=== PATIENT | male | born 1975 | race Caucasian/White ===

== ENCOUNTER 2019-03-22 18:20 | Inpatient (IN) | payer BC ==
--- NOTE | 2019-03-22 18:55 | ED ---
Abdominal Pain HPI - General Chief Complaint: Abdominal Pain Stated Complaint: Abd pain Time Seen by Provider: 03/22/19 18:46 Source: patient Mode of arrival: ambulatory Limitations: no limitations - History of Present Illness Initial Comments: 43-year-old male presenting for left-sided abdominal pain x 1 day. He states he has left-sided abdominal pain stretching from the left upper abdomen towards the lower. He states he began yesterday and has come and gone. Patient states this then persisted today. He states he is not able to eat anything aside from some fruit this morning around 11 AM. Patient denies any vomiting diarrhea melena hematochezia. Patient denies constipation. Patient states he does have a problem with alcohol abuse. Patient denies abdominal trauma. He has a fever chills night sweats. Remaining review of system negative. Upon arrival patient appears uncomfortable. Heart rate elevated - Related Data Home Medications Medication Instructions Recorded Confirmed No Known Home Medications 03/22/19 03/22/19 Allergies Allergy/AdvReac Type Severity Reaction Status Date / Time No Known Allergies Allergy Verified 03/22/19 22:02 Review of Systems ROS Statement: Those systems with pertinent positive or pertinent negative responses have been documented in the HPI. ROS Other: All systems not noted in ROS Statement are negative. Past Medical History Past Medical History: No Reported History History of Any Multi-Drug Resistant Organisms: None Reported Past Surgical History: No Surgical Hx Reported Past Psychological History: No Psychological Hx Reported Smoking Status: Never smoker Past Alcohol Use History: Daily Past Drug Use History: None Reported General Exam - General Exam Comments Initial Comments: General: The patient is awake and alert Eye: Pupils are equal, round and reactive to light, extra-ocular movements are intact. No nystagmus. There is normal conjunctiva bilaterally. No signs of icterus. Ears, nose, mouth and throat: There are moist mucous membranes and no oral lesions. Neck: The neck is supple, there is no tenderness or JVD. Cardiovascular: There is a regular rate and rhythm. No murmur, rub or gallop is appreciated. Respiratory: Lungs are clear to auscultation, respirations are non-labored, breath sounds are equal. No wheezes, stridor, rales, or rhonchi. Gastrointestinal: Soft, non-distended, diffusely tender abdomen, mostly left sided/upper without masses or organomegaly noted. There is no rebound or guarding present. No CVA tenderness. Bowel sounds are unremarkable. Musculoskeletal: Normal ROM, no tenderness. Strength 5/5. Sensation intact. Radial pulses equal bilaterally 2+. Neurological: A&O x 3. CN II-XII intact, There are no obvious motor or sensory deficits. Coordination appears grossly intact. Speech is normal. Skin: Skin is warm and dry and no rashes or lesions are noted. Psychiatric: Cooperative, appropriate mood & affect, normal judgment. Limitations: no limitations Course Vital Signs 03/22/19 03/22/19 18:41 21:41 Temperature 100.4 F H Pulse Rate 126 H 108 H Respiratory 18 16 Rate Blood Pressure 129/79 130/84 O2 Sat by Pulse 97 99 Oximetry Medical Decision Making - Medical Decision Making 43-year-old male presenting for abdominal pain. Patient has no specific tenderness on examination. Patient blood lipemic upon blood draw, patient has not ate today this is concerning for familial TG disorder. Triglycerides greater than 1000, Cholesterol ~930. Patient has history of alcohol abuse. Due to the lipemic blood were unable to obtain accurate lipase. CT findings consistent with pancreatitis. Ultrasound revealed no signs of acute cholecystitis. Patient was given ceftriaxone given fever and elevated heart rate on arrival. Blood cultures are pending. Lactic acid within normal limits. Patient ordered nothing by mouth with conservative pancreatitis patient states pain medications the emergency department. Results as well as concern for familial disorder was discussed at length the patient verbalized understanding. Patient is agreeable to admission. Admission accepted by Dr. Perea after discussing the case. GI on consult. - Lab Data Result diagrams: 03/22/19 19:59 03/22/19 19:59 Lab Results 03/22/19 03/22/19 03/22/19 Range/Units 19:59 19:59 19:59 WBC 17.8 H (3.8-10.6) k/uL RBC 3.91 L (4.30-5.90) m/uL Hgb 17.9 H (13.0-17.5) gm/dL Hct 36.8 L (39.0-53.0) % MCV 94.1 (80.0-100.0) fL MCH 45.8 H (25.0-35.0) pg MCHC 48.6 H (31.0-37.0) g/dL RDW 14.1 (11.5-15.5) % Plt Count 243 (150-450) k/uL Neutrophils % 84 % Lymphocytes % 10 % Monocytes % 3 % Eosinophils % 2 % Basophils % 0 % Neutrophils # 15.0 H (1.3-7.7) k/uL Lymphocytes # 1.7 (1.0-4.8) k/uL Monocytes # 0.6 (0-1.0) k/uL Eosinophils # 0.3 (0-0.7) k/uL Basophils # 0.1 (0-0.2) k/uL Sodium 131 L (137-145) mmol/L Potassium 3.5 (3.5-5.1) mmol/L Chloride 97 L (98-107) mmol/L Carbon Dioxide 18 L (22-30) mmol/L Anion Gap 16 mmol/L BUN 8 L (9-20) mg/dL Creatinine 0.72 (0.66-1.25) mg/dL Est GFR (CKD-EPI)AfAm >90 (>60 ml/min/1.73 sqM) Est GFR (CKD-EPI)NonAf >90 (>60 ml/min/1.73 sqM) Glucose 104 H (74-99) mg/dL Plasma Lactic Acid Marlon 1.2 (0.7-2.0) mmol/L Calcium 8.3 L (8.4-10.2) mg/dL Total Bilirubin 2.0 H (0.2-1.3) mg/dL AST 62 H (17-59) U/L ALT 44 (21-72) U/L Alkaline Phosphatase 101 (38-126) U/L Total Protein 7.3 (6.3-8.2) g/dL Albumin 3.1 L (3.5-5.0) g/dL Triglycerides (<150) mg/dL Cholesterol (<200) mg/dL LDL Cholesterol, Calc (0-99) mg/dL HDL Cholesterol (40-60) mg/dL Amylase 154 H (30-110) U/L Urine Color Urine Appearance (Clear) Urine pH (5.0-8.0) Ur Specific [place] (1.001-1.035) Urine Protein (Negative) Urine Glucose (UA) (Negative) Urine Ketones (Negative) Urine Blood (Negative) Urine Nitrite (Negative) Urine Bilirubin (Negative) Urine Urobilinogen (<2.0) mg/dL Ur Leukocyte Esterase (Negative) Urine RBC (0-5) /hpf Urine Mucus (None) /hpf 03/22/19 03/22/19 Range/Units 19:59 21:45 WBC (3.8-10.6) k/uL RBC (4.30-5.90) m/uL Hgb (13.0-17.5) gm/dL Hct (39.0-53.0) % MCV (80.0-100.0) fL MCH (25.0-35.0) pg MCHC (31.0-37.0) g/dL RDW (11.5-15.5) % Plt Count (150-450) k/uL Neutrophils % % Lymphocytes % % Monocytes % % Eosinophils % % Basophils % % Neutrophils # (1.3-7.7) k/uL Lymphocytes # (1.0-4.8) k/uL Monocytes # (0-1.0) k/uL Eosinophils # (0-0.7) k/uL Basophils # (0-0.2) k/uL Sodium (137-145) mmol/L Potassium (3.5-5.1) mmol/L Chloride (98-107) mmol/L Carbon Dioxide (22-30) mmol/L Anion Gap mmol/L BUN (9-20) mg/dL Creatinine (0.66-1.25) mg/dL Est GFR (CKD-EPI)AfAm (>60 ml/min/1.73 sqM) Est GFR (CKD-EPI)NonAf (>60 ml/min/1.73 sqM) Glucose (74-99) mg/dL Plasma Lactic Acid Marlon (0.7-2.0) mmol/L Calcium (8.4-10.2) mg/dL Total Bilirubin (0.2-1.3) mg/dL AST (17-59) U/L ALT (21-72) U/L Alkaline Phosphatase (38-126) U/L Total Protein (6.3-8.2) g/dL Albumin (3.5-5.0) g/dL Triglycerides >5250 H (<150) mg/dL Cholesterol 976 H (<200) mg/dL LDL Cholesterol, Calc (0-99) mg/dL HDL Cholesterol 24 L (40-60) mg/dL Amylase (30-110) U/L Urine Color Yellow Urine Appearance Clear (Clear) Urine pH 7.0 (5.0-8.0) Ur Specific [place] >1.050 H (1.001-1.035) Urine Protein Trace H (Negative) Urine Glucose (UA) Negative (Negative) Urine Ketones 2+ H (Negative) Urine Blood Trace H (Negative) Urine Nitrite Negative (Negative) Urine Bilirubin Negative (Negative) Urine Urobilinogen <2.0 (<2.0) mg/dL Ur Leukocyte Esterase Negative (Negative) Urine RBC 2 (0-5) /hpf Urine Mucus Rare H (None) /hpf Disposition Clinical Impression: Pancreatitis, Abdominal pain, Leukocytosis, Elevated triglycerides with high cholesterol Disposition: ADMITTED IP TO THIS [facility] Condition: Stable Is patient prescribed a controlled substance at d/c from ED?: No Time of Disposition: 21:55 Decision to Admit Reason: Admit from EC Decision Date: 03/22/19 Decision Time: 21:56
--- NOTE | 2019-03-22 19:25 | XR ---
EXAMINATION TYPE: XR chest 2V DATE OF EXAM: 03/22/2019 COMPARISON: NONE HISTORY: Pain TECHNIQUE: Frontal and lateral views of the chest are obtained. FINDINGS: Heart and mediastinum are normal. Lungs are clear. Diaphragm is normal. Bony thorax appear s normal. IMPRESSION: Normal chest.
[2019-03-22 20:09] LABS: Basophils # (A) 0.1 k/uL (0-0.2); Basophils % (A) 0 %; Eosinophils # (A) 0.3 k/uL (0-0.7); Eosinophils % (A) 2 %; HCT 36.8 % (39.0-53.0); HGB 17.9 gm/dL (13.0-17.5); Lymphocytes # (A) 1.7 k/uL (1.0-4.8); Lymphocytes % (A) 10 %; MCV 94.1 fL (80.0-100.0); Monocytes # (A) 0.6 k/uL (0-1.0); Monocytes % (A) 3 %; Neutrophils % (A) 84 %; Platelet Count 243 k/uL (150-450); RBC 3.91 m/uL (4.30-5.90); RDW 14.1 % (11.5-15.5); WBC 17.8 k/uL (3.8-10.6)
[2019-03-22 20:22] LABS: MCH 45.8 pg (25.0-35.0); MCHC 48.6 g/dL (31.0-37.0)
[2019-03-22 20:23] LABS: ALT 44 U/L (21-72); AST 62 U/L (17-59); African American GFR (CKD) >90 (>60 ml/min/1.73 sqM); Albumin 3.1 g/dL (3.5-5.0); Alkaline Phosphatase 101 U/L (38-126); Amylase 154 U/L (30-110); Anion Gap 16 mmol/L; Blood Urea Nitrogen 8 mg/dL (9-20); Calcium 8.3 mg/dL (8.4-10.2); Carbon Dioxide 18 mmol/L (22-30); Chloride 97 mmol/L (98-107); Glucose 104 mg/dL (74-99); Potassium 3.5 mmol/L (3.5-5.1); Sodium 131 mmol/L (137-145); Total Protein 7.3 g/dL (6.3-8.2)
--- NOTE | 2019-03-22 20:44 | CT ---
EXAMINATION TYPE: CT abdomen pelvis w con DATE OF EXAM: 03/22/2019 COMPARISON: None HISTORY: left sided abdominal pain, fever, vomiting CT DLP: 857.9 mGycm Automated exposure control for dose reduction was used. TECHNIQUE: Helical acquisition of images was performed from the lung bases through the pelvis. CONTRAST: Performed without Oral Contrast and with IV Contrast, patient injected with 100 mL of Isovue 300. FINDINGS: Lung bases are clear. There is no pleural effusion. Heart size is normal. There is no pericardial eff usion. There is fluid and fat stranding around the body and tail of the pancreas. There is some fluid at the splenic hilum. Stomach has normal size. The gallbladder is large and measures 5 cm in diameter. Ther e is a subtle low density 4 cm area in the superior right lobe of the liver. The remainder of the kaycee er appears normal. The bile ducts are not dilated. There is no adrenal mass. Kidneys show satisfactory contrast opacification. There is no hydronephrosi s. There is no definite renal calculus. There is no retroperitoneal adenopathy. Ureters are not dilat ed. Bladder distends smoothly. There is no inguinal hernia. There is no free fluid in the pelvis. The laverne endix appears normal. There is no mesenteric edema. There is no ascites or free air. The lumbar spine shows no compression fracture. There is L5 spondylolysis with a few millimeter anterior subluxation of L5 in relation to S1. The bony pelvis appears intact. IMPRESSION: THERE IS FLUID ACCUMULATION AT THE TAIL OF THE PANCREAS THAT COULD RELATE TO ACUTE PANCREATITIS. DILATED GALLBLADDER THAT MEASURES 5 CM AND COULD RELATE TO CHOLECYSTITIS OR GALLBLADDER DYSFUNCTION. NO GALLBLADDER WALL THICKENING. NO DILATED DUCTS. SUBTLE LOW-ATTENUATION AREA IN THE LIVER. ULTRASOUND WOULD BE HELPFUL TO EXCLUDE A MASS.
[2019-03-22] MEDS ORDERED: cefTRIAXone IN SWFI 1,000 MG/10 ML SYRINGE IVP STA (20:49)
[2019-03-22] MEDS ORDERED: MORPHINE SULFATE 2 MG/ML SYRINGE IVP STA (21:30)
[2019-03-22] MEDS ORDERED: SODIUM CHLORIDE 0.9% 1,000 ML IV ONE (21:31)
[2019-03-22] MEDS ORDERED: SODIUM CHLORIDE 0.9% 500 ML 500 ML IV ONE (21:31)
--- NOTE | 2019-03-22 21:44 | US ---
EXAMINATION TYPE: US abdomen limited DATE OF EXAM: 03/22/2019 COMPARISON: None CLINICAL HISTORY: pain. NPO, N/V, no previous surgeries EXAM MEASUREMENTS: Liver Length: 22.0 cm Gallbladder Wall: 0.2 cm CHD: 0.2 cm Right Kidney: 13.1 x 5.7 x 4.8 cm Pancreas: Appears heterogenous Liver: Increased attenuation, decreased visualization of vessels suggestive of fatty infiltrate. Ap pears enlarged in size, coarse and lobular. Posterior right lobe not well visualized due to attenuat ion. Gallbladder: Enlarged in size. Evidence for sonographic Frederick's sign: neg CBD: Obscured by overlying bowel gas CHD: wnl Right Kidney: wnl IMPRESSION: Dilated gallbladder without gallbladder wall thickening consistent with gallbladder dysfu nction. No gallstones. No discrete liver mass that is suggested by the CT scan today.
[2019-03-22] MEDS ORDERED: NALOXONE 0.4 MG/ML 1 ML VIAL IV PRN (21:56)
[2019-03-22] MEDS ORDERED: MORPHINE SULFATE 4 MG/ML SYRINGE IVP PRN (21:58)
[2019-03-22 22:08] LABS: Appearance,Urine Clear (Clear); Bilirubin,Urine Negative (Negative); Blood,Urine Trace (Negative); Color,Urine Yellow; Glucose,Urine (UA) Negative (Negative); Ketones,Urine 2+ (Negative); Leukocyte Esterase,Urine Negative (Negative); Mucus,Urine Rare /hpf; Nitrite,Urine Negative (Negative); Protein,Urine Trace (Negative); RBC,Urine 2 /hpf (0-5); Urobilinogen,Urine <2.0 mg/dL (<2.0)
[2019-03-22 22:32] LABS: Specific Gravity,Urine >1.050 (1.001-1.035)
[2019-03-22 23:10] LABS: Triglycerides >5250 mg/dL (<150)
[2019-03-22 23:11] LABS: HDL Cholesterol 24 mg/dL (40-60)
[2019-03-23] MEDS: SODIUM CHLORIDE 0.9% 1,000 ML IV SCH ×3 (00:09→15:44)
--- NOTE | 2019-03-23 00:44 | P.HPIM ---
History of Present Illness H&P Date: 03/22/19 Chief Complaint: Abdominal pain 43-year-old male with no significant past medical history Patient presented with left upper quadrant abdominal pain of one-day duration. He reports the pain lasted started last night however he managed to sleep and woke up this morning feeling okay but then after having breakfast he started experiencing left upper quadrant and left flank pain nonradiating reported to be 8-10 out of 10 in severity stabbing in nature worse with movement associated with nausea and vomiting of food content denies any hematemesis or bilious vomiting. Denies any melena or bloody bowel movement. He admits to binge drinking during March 21 celebrations. He reports being healthy in the past. In the ED he was noted to have turbid blood sample for which triglyceride and cholesterol came back very high he denies any family history or prior history of having abnormal cholesterol or any family history of hypertriglyceridemia. Patient pain was controlled with morphine. Vital signs are stable CAT scan showed possible fluid around the tail of the pancreas but no definite evidence of acute pancreatitis. Showed possibly dilated gallbladder. Ultrasound showed no masses in the liver. Patient was admitted for pain control and monitoring overnight along with GI evaluation Review of Systems Pertinent positives as noted in HPI. All other systems were reviewed and are negative Past Medical History Past Medical History: No Reported History History of Any Multi-Drug Resistant Organisms: None Reported Past Surgical History: No Surgical Hx Reported Past Psychological History: No Psychological Hx Reported Smoking Status: Never smoker Past Alcohol Use History: Daily Past Drug Use History: None Reported - Past Family History Family Additional Family Medical History / Comment(s): No family history of hypertriglyceridemia Medications and Allergies Home Medications Medication Instructions Recorded Confirmed Type No Known Home Medications 03/22/19 03/22/19 History Allergies Allergy/AdvReac Type Severity Reaction Status Date / Time No Known Allergies Allergy Verified 03/22/19 22:02 Physical Exam Vitals: Vital Signs Temp Pulse Resp BP Pulse Ox 03/22/19 21:41 108 H 16 130/84 99 03/22/19 18:41 100.4 F H 126 H 18 129/79 97 Intake and Output 03/22/19 03/22/19 03/23/19 14:59 22:59 06:59 Other: Weight 88.451 kg Constitutional: No acute distress, conversant, pleasant Eyes: Anicteric sclerae, moist conjunctiva, no lid-lag Pupils equal round reactive to light ENMT: NC/AT Oropharynx clear, no erythema, exudates Neck: Supple, FROM, no masses, or JVD No carotid bruits No thyromegaly Lungs: Clear to auscultation Clear to percussion Normal respiratory effort, no accessory muscle use Cardiovascular: Heart regular in rate and rhythm, No murmurs, gallops, or rubs No peripheral edema Abdominal: Soft Tenderness to palpation over the left flank and left upper quadrant. Definitely no tenderness to deep palpation of the epigastric region, no guarding, rebound or rigidity Abdomen moving with respiration Normoactive bowel sounds No hepatomegaly, No splenomegaly No palpable mass No abdominal wall hernia noted Skin: Normal temperature, tone, texture, turgor No induration No subcutaneous nodules No rash, lesions No ulcers Extremities: No digital cyanosis No clubbing Pedal pulses intact and symmetrical Radial pulses intact and symmetrical No calf tenderness Psychiatric: Alert and oriented to person, place and time Appropriate affect fair judgment Neuro Muscles Strength 5/5 in all 4 extremities Sensation to light touch grossly present throughout Cranial nerves II-XII grossly intact No focal sensory deficits Lymphatics: no palpable cervical or supraclavicular , or inguinal lymph nodes Results CBC & Chem 7: 03/22/19 19:59 03/22/19 19:59 Labs: Abnormal Lab Results - Last 24 Hours (Table) 03/22/19 03/22/19 03/22/19 Range/Units 19:59 19:59 19:59 WBC 17.8 H (3.8-10.6) k/uL RBC 3.91 L (4.30-5.90) m/uL Hgb 17.9 H (13.0-17.5) gm/dL Hct 36.8 L (39.0-53.0) % MCH 45.8 H (25.0-35.0) pg MCHC 48.6 H (31.0-37.0) g/dL Neutrophils # 15.0 H (1.3-7.7) k/uL Sodium 131 L (137-145) mmol/L Chloride 97 L (98-107) mmol/L Carbon Dioxide 18 L (22-30) mmol/L BUN 8 L (9-20) mg/dL Glucose 104 H (74-99) mg/dL Calcium 8.3 L (8.4-10.2) mg/dL Total Bilirubin 2.0 H (0.2-1.3) mg/dL AST 62 H (17-59) U/L Albumin 3.1 L (3.5-5.0) g/dL Triglycerides >5250 H (<150) mg/dL Cholesterol 976 H (<200) mg/dL HDL Cholesterol 24 L (40-60) mg/dL Amylase 154 H (30-110) U/L Ur Specific [place] (1.001-1.035) Urine Protein (Negative) Urine Ketones (Negative) Urine Blood (Negative) Urine Mucus (None) /hpf 03/22/19 Range/Units 21:45 WBC (3.8-10.6) k/uL RBC (4.30-5.90) m/uL Hgb (13.0-17.5) gm/dL Hct (39.0-53.0) % MCH (25.0-35.0) pg MCHC (31.0-37.0) g/dL Neutrophils # (1.3-7.7) k/uL Sodium (137-145) mmol/L Chloride (98-107) mmol/L Carbon Dioxide (22-30) mmol/L BUN (9-20) mg/dL Glucose (74-99) mg/dL Calcium (8.4-10.2) mg/dL Total Bilirubin (0.2-1.3) mg/dL AST (17-59) U/L Albumin (3.5-5.0) g/dL Triglycerides (<150) mg/dL Cholesterol (<200) mg/dL HDL Cholesterol (40-60) mg/dL Amylase (30-110) U/L Ur Specific [place] >1.050 H (1.001-1.035) Urine Protein Trace H (Negative) Urine Ketones 2+ H (Negative) Urine Blood Trace H (Negative) Urine Mucus Rare H (None) /hpf Assessment and Plan Assessment: 43-year-old male with no significant past medical history admitted under observation with anticipated length of stay less than 48 hours, due to acute onset abdominal pain to rule out acute pancreatitis. Blood sample given in the ED was turbid showed elevated triglycerides and cholesterol patient reports having normal levels in the past and denying any history of familial hypertriglyceridemia. Symptoms are not typical for acute pancreatitis. Computed tomography scan did not show definite evidence of acute pancreatitis. Patient will be kept for monitoring and IV fluid hydration and repeat lipase and triglyceride levels in the morning Plan: abdominal pain , with no enough clinical evidence to diagnose acute pancreatitis ( patient does not have acute epigastric pain that radiates to back, no lipase level available at this time, and CT scan did not show definite findings of acute pancreatitis) symptomatic control IVF hydration NPO GI evaluation repeat lipase level in AM, repeat triglycerides level (at this time sample was turbid and showed elevated TG and Cholestrol , however, patient reports normal levels in the past, and denies family history of hypertriglyceridemia) close monitoring patient would require plasmapharesis and /or insulin drip to lower TG, if di agnosed with definite acute episode of pancreatitis due to hyperTG. CT also suggested possible dilated GB (possibly passed a stone) , patient also giving history of binge drinking while celebrating the holidays , these could be other causes of acute pancreatitis DVT PPX, heparin sc tid Surrogate decision-maker: CODE STATUS: Full code Discussed with: Patient, ER, RN Anticipated discharge: Less than [address]: Home A total of 60 minutes was spent on the care of this complex patient more than 50% of the time was spent in counseling and care coordination.
[2019-03-23] MEDS: MORPHINE SULFATE 4 MG/ML SYRINGE IVP PRN ×2 (00:45→07:39)
[2019-03-23] MEDS ORDERED: HEPARIN SODIUM,PORCINE 5,000 UNIT/ML 1 ML VIAL SQ SCH (08:00)
[2019-03-23 08:37] VITALS: RESP 16
[2019-03-23 11:16] LABS: Chloride 101 mmol/L (98-107); Sodium 136 mmol/L (137-145)
[2019-03-23 11:38] LABS: Potassium 3.4 mmol/L (3.5-5.1)
[2019-03-23 11:43] LABS: Triglycerides >5250 mg/dL (<150)
[2019-03-23 11:51] LABS: ALT 50 U/L (21-72); AST 42 U/L (17-59); African American GFR (CKD) >90 (>60 ml/min/1.73 sqM); Albumin 3.7 g/dL (3.5-5.0); Alkaline Phosphatase 80 U/L (38-126); Anion Gap 11 mmol/L; Blood Urea Nitrogen 5 mg/dL (9-20); Carbon Dioxide 24 mmol/L (22-30); Glucose 114 mg/dL (74-99); Total Bilirubin 1.5 mg/dL (0.2-1.3); Total Protein 6.7 g/dL (6.3-8.2)
[2019-03-23] MEDS ORDERED: SODIUM CHLORIDE 0.9% 1,000 ML IV ONE (12:07)
[2019-03-23] MEDS ORDERED: POTASSIUM CHLORIDE 20 MEQ in WATER FOR INJECTION 1 100ML.BAG IVPB STA (12:11)
[2019-03-23] MEDS ORDERED: LACTATED RINGERS 1,000 ML IV SCH (12:15)
--- NOTE | 2019-03-23 12:43 | P.DS ---
Providers Date of admission: 03/22/19 23:17 Expected date of discharge: 03/23/19 Attending physician: Chaz Perea MD Consults: 03/22/19 21:56 Consult Physician Routine Consulting Provider: Uriel Dominguez Consult Reason/Comments: pancreatitis, concern for a familial TG d/o (lipemic sample) Do you want consulting provider notified?: Yes Primary care physician: Pedro Tompkins [facility] Course: Discharge Diagnosis: Acute pancreatitis secondary to hypertriglyceridemia Dehydration Alcohol abuse Hypokalemia Anion gap meatabolic acidosis, resolved Hyponatremia, improved Hospital Course: Patient is a 43-year-old male with a past medical history of alcoholism who presented to the ER with complaints of left upper quadrant pain for 1 day duration. In the ER he underwent an extensive evaluation. His initial specimen was too lipemic to draw a lipase. His computed tomography scan showed fluid around the body and tail of the pancreas consistent with acute pancreatitis. He was also found to have a dilated gallbladder 5 cm. There was possible liver lesion noted as well. Initial laboratory analysis showed an elevated white blood cell count at 17.8, hemoglobin 17.9, hematocrit 36.8, platelets 243. He was found to have a sodium of 131, carbon dioxide 18, anion gap 16, glucose 104, calcium 8.3, total bilirubin 2, AST 62, ALT 44. His triglyceride level came back at greater than 5250. He is admitted to our general medical floor. He was started on IV fluids at 150 mL/h with normal saline. He was given 1.5 L fluid bolus. On the morning after admission his abdominal pain had increased and he was feeling slightly worse. I immediately called gastroenterology who recommended transfer to tertiary care center for possible plasma pharesis as his triglycerides again for greater than 5250. Arrangements were made for transfer to [facility] to the medical ICU for insulin drip and possible plasmapheresis. Dr. Castellanos is the accepting physician. Patient seen and examined at bedside. Increasing left sided abdominal pain, dry mouth, + nausea, no chest pain or shortness of breath. Vital signs reviewed and stable. General: non toxic, no distress, appears at stated age Derm: warm, dry Head: atraumatic, normocephalic, symmetric Eyes: EOMI, no lid lag, anicteric sclera Mouth: no lip lesion, mucus membranes moist Cardiovascular: S1S2 reg, no murmur, positive posterior tibial pulse bilateral, Lungs: CTA bilateral, no rhonchi, no rales , no accessory muscle use Abdominal: soft, +tender to palpation LUQ and LLQ, no guarding, no appreciable organomegaly Ext: no gross muscle atrophy, no edema, no contractures Neuro: CN II-XI grossly intact, no focal neuro deficits Psych: Alert, oriented, appropriate affect A total of 45 minutes of time were spent preparing this complex discharge summary . Pertinent Studies: CT abdomen and pelvis-dilated gallbladder 5 cm, acute pancreatitis involving the body and tail of the pancreas, possible hypoechoic lesion on liver Abdominal ultrasound-no signs of cholelithiasis, dilated gallbladder consistent with gallbladder dysfunction, no signs of any liver lesion CXR- NAP Patient Condition at Discharge: Fair Plan - Discharge Summary New Discharge Prescriptions: No Action No Known Home Medications Discharge Medication List No Known Home Medications 03/22/19 [History] Follow up Appointment(s)/Referral(s): Pedro Tompkins MD [Primary Care Provider] - 1-2 days
[2019-03-23] MEDS: HYDROmorphone 1 MG/ML 1 ML SYRINGE IVP PRN ×2 (12:52→15:37)
[2019-03-23 15:14] VITALS: BP 123/68; PULSE 115; TEMP 101
[2019-03-25 07:13] LABS: Cholesterol 976 mg/dL (<200)
== END 2019-03-23 16:07 | disposition short-term general hospital (02) | DRG 439 ==
LOC: SUPCPDRO 18:20 → EC 18:20 → 4SSUR 23:17 → OBSVTOIN 03-23 14:18
PROVIDERS: ADMIT Internal Medicine; ATTEND Internal Medicine
DX: K85.80 Other acute pancreatitis without necrosis or infection (principal); E87.1 Hypo-osmolality and hyponatremia; E87.2 Acidosis; E78.00 Pure hypercholesterolemia, unspecified; E78.1 Pure hyperglyceridemia; E86.0 Dehydration; E87.6 Hypokalemia; F10.10 Alcohol abuse, uncomplicated; K76.9 Liver disease, unspecified; K82.8 Other specified diseases of gallbladder
CPT/HCPCS: 36415; 71046; 74177; 76705; 80053; 80061; 81001; 82150; 83605; 84478; 85025; 87040; 96361; 96374; 96375; 99285